=== PATIENT | male | born 1955 | race Caucasian/White ===

== ENCOUNTER 2017-07-02 12:54 | Emergency (ER) | payer OTHER, MEDICARE ==
[~2017-07-02] VITALS: Ht 172.7 cm; Wt 88.0 kg
[2017-07-02 13:08] VITALS: BP 141/74; PULSE 75; RESP 16; TEMP 98.5; O2SAT 97
[2017-07-02] MEDS ORDERED: BACT800T5 PO (13:52)
[2017-07-02] MEDS ORDERED: CEPH-460 PO (13:52)
--- NOTE | 2017-07-02 13:54 | PD ---
HPI Chief Complaint: Skin Problem Time Seen by Provider: 13:35 Travel History International Travel<30 days: No Contact w/Intl Traveler<30days: No Traveled to known affect area: No History of Present Illness HPI 61-year-old male with history of early-onset dementia, frontal temporal lobe dementia presents to the emergency department with his and son at bedside for evaluation of infection to the left second finger. He states he noticed this this morning. He is not currently on antibiotics. The patient does not contribute to history and physical due to his dementia history. They state that he is at his baseline. The patient is sleeping on my exam. He does not act like he is in pain when I touch the finger. Moderate severity. PFSH Past Medical History Diabetes: Yes Respiratory: Yes (COPD) ?: Not Social History Alcohol Use: No Tobacco Use: No Substance Use: No Allergies-Medications (Allergen,Severity, Reaction): Coded Allergies: hazelnut (Verified Allergy, Severe, Anaphylaxis, 07/02/17) Reported Meds & Prescriptions Reported Meds & Active Scripts Active Keflex (Cephalexin) 500 Mg Capsule 500 Mg PO Q6H 10 Days Bactrim DS (Sulfamethoxazole-Trimethoprim) 800-160 Mg Tab 1 Tab PO BID Review of Systems Except as stated in HPI: all other systems reviewed are Neg Physical Exam Narrative GENERAL: Well-nourished, well-developed male patient, afebrile. SKIN: Focused skin assessment warm/dry. Patient has large paronychia to the medial aspect of the left second nail. He does have a small red streak that goes fci down the left hand. HEAD: Normocephalic. Atraumatic. EYES: No scleral icterus. No injection or drainage. NECK: Supple, trachea midline. No JVD or lymphadenopathy. CARDIOVASCULAR: Regular rate and rhythm without murmurs, gallops, or rubs. RESPIRATORY: Breath sounds equal bilaterally. No accessory muscle use. Lungs sounds are clear to auscultation. GASTROINTESTINAL: Abdomen soft, non-tender, nondistended. MUSCULOSKELETAL: No cyanosis, or edema. Data Data Last Documented VS Vital Signs Date Time Temp Pulse Resp B/P (MAP) Pulse Ox O2 Delivery O2 Flow Rate FiO2 07/02/17 13:08 98.5 75 16 141/74 (96) 97 Orders Orders Wound Culture And Gram Stain (07/02/17 13:42) Sulfamet-Trimeth Ds 800-160 Mg (Bactrim (07/02/17 14:00) Cephalexin (Keflex) (07/02/17 14:00) [facility] Medical Decision Making Medical Screen Exam Complete: Yes Emergency Medical Condition: Yes Medical Record Reviewed: Yes Differential Diagnosis Paronychia versus felon versus cellulitis Narrative Course 51-year-old male presents to the emergency department with his and son at bedside for evaluation of a left second finger infection. On exam, the patient has a large paronychia. I discussed doing a digital block versus opening up the area. His family agrees to just open the paronychia. Wound culture is taken. Patient is given first dose of Bactrim and Keflex. His family is instructed on proper wound care. They are to return for any acute worsening of symptoms, worsening infection. The patient was discharged in stable condition with instructions, including return instructions and follow up instructions. Procedures Procedure Narrative INCISION AND DRAINAGE OF ABSCESS: The area was prepped and was sterilely draped. A number 11 scalpel was used to make a 0.5 -cm incision across the area of the abscess. Cultures were obtained. The abscess was drained an irrigated with normal saline. Sterile dressing applied. Diagnosis Primary Impression: Paronychia of finger of left hand Referrals: Primary Care Physician call for appointment Patient Instructions: General Instructions, Paronychia (ED) Additional Instructions: Clean twice daily with soap and water and apply [id number] antibiotic ointment. Keep clean and dry. Take antibiotics as directed until gone. Follow-up with your primary care physician. Return to the emergency department for any acute worsening of symptoms. Med/Other Pt SpecificInfo: Prescription(s) given Scripts Cephalexin (Keflex) 500 Mg Capsule 500 MG PO Q6H for Infection for 10 Days, #40 CAP 0 Refills Prov: Elise Mar 07/02/17 Sulfamethoxazole-Trimethoprim (Bactrim DS) 800-160 Mg Tab 1 TAB PO BID for Infection, #20 TAB 0 Refills Prov: Elise Mar 07/02/17 Disposition: 01 DISCHARGE HOME Condition: Stable Elise Mar Jul 02, 2017 13:54
[2017-07-02] MEDS ORDERED: CEPHALEXIN MONOHYDRATE 500 MG CAP PO ONE (14:00)
[2017-07-02] MEDS ORDERED: SULFAMETHOXAZOLE-TRIMETHOPRIM DS 800-160 MG TAB PO ONE (14:00)
[2017-07-02] MEDS ORDERED: NAME10TA PO (14:13)
[2017-07-02] MEDS ORDERED: LISI-519 PO (14:13)
[2017-07-02] MEDS ORDERED: TRAZ100T10 PO (14:13)
[2017-07-02] MEDS ORDERED: METF500T PO (14:13)
[2017-07-02] MEDS ORDERED: OLAN5TAB PO (14:13)
[2017-07-02] MEDS ORDERED: CELE40TA PO (14:13)
[2017-07-02] MEDS ORDERED: RIVA1DIS2 T-DERMAL (14:13)
== END 2017-07-02 14:45 | disposition home or self-care (01) ==
LOC: PHEFT 12:54
DX: L03.012 Cellulitis of left finger (principal); E11.9 Type 2 diabetes mellitus without complications; G31.09 Other frontotemporal neurocognitive disorder; F02.80 Dementia in other diseases classified elsewhere, unspecified severity, without behavioral disturbance, psychotic disturbance, mood disturbance, and anxiety
CPT/HCPCS: 10060; 87070; 87205